=== PATIENT | female | born 1935 | race Asian ===

== ENCOUNTER 2018-02-27 09:14 | Inpatient (IN) | payer OTHER ==
[2018-02-27] MEDS ORDERED: fentaNYL (PF) 50 MCG/ML 2 ML AMP IV STA ×2 (10:13→11:40)
--- NOTE | 2018-02-27 10:19 | ED ---
Fall HPI - General Chief Complaint: Fall Stated Complaint: fall Time Seen by Provider: 02/27/18 10:00 Source: patient, family, science interpreter, RN notes reviewed Mode of arrival: wheelchair - History of Present Illness Initial Comments: This 82-year-old female history of compression fractures and other medical issues who uses a walker to walk at home and fell today. Walker apparently went over toward the left she fell landing on her left hip and now complains left hip pain. She had weak. Into a car to get here today. No complete to head neck or other back injury she points her left hip and anterior left groin. She did not pass out denies any palpitations or chest pain. She has difficulty moving her left lower extremity MD Complaint: fall - Related Data Home Medications Medication Instructions Recorded Confirmed Allopurinol [Zyloprim] 100 mg PO DAILY 02/27/18 02/27/18 Cyclobenzaprine [Flexeril] 5 mg PO TID PRN 02/27/18 02/27/18 Ergocalciferol (Vitamin D2) 50,000 unit PO Q7D 02/27/18 02/27/18 [Vitamin D2] Fenofibrate [Lofibra] 160 mg PO DAILY 02/27/18 02/27/18 Fluticasone Nasal [place] [Flonase 2 spr EA NOSTRIL DAILY 02/27/18 02/27/18 Nasal [place]] Isosorbide Mononitrate ER [Imdur] 60 mg PO DAILY 02/27/18 02/27/18 Levothyroxine Sodium [Synthroid] 50 mcg PO DAILY 02/27/18 02/27/18 Losartan [Cozaar] 50 mg PO DAILY 02/27/18 02/27/18 Nitroglycerin Sl Tabs [Nitrostat] 0.4 mg SUBLINGUAL Q5M PRN 02/27/18 02/27/18 Simvastatin [Zocor] 20 mg PO HS 02/27/18 02/27/18 amLODIPine [Norvasc] 10 mg PO DAILY 02/27/18 02/27/18 Allergies Allergy/AdvReac Type Severity Reaction Status Date / Time No Known Allergies Allergy Verified 02/27/18 09:29 Review of Systems ROS Statement: Those systems with pertinent positive or pertinent negative responses have been documented in the HPI. ROS Other: All systems not noted in ROS Statement are negative. Past Medical History Past Medical History: Coronary Artery Disease (CAD), Hypertension, Renal Disease History of Any Multi-Drug Resistant Organisms: None Reported Past Surgical History: Cholecystectomy, Hysterectomy Past Psychological History: No Psychological Hx Reported Smoking Status: Never smoker Past Alcohol Use History: None Reported Past Drug Use History: None Reported General Exam - General Exam Comments Initial Comments: This is a well-developed well-nourished awake alert female the information is gathered through her daughter who interprets for her. Limitations: no limitations General appearance: alert, anxious Head exam: Present: atraumatic, normocephalic, normal inspection Eye exam: Present: normal appearance, PERRL, EOMI. Absent: scleral icterus, conjunctival injection, periorbital swelling ENT exam: Present: normal exam, mucous membranes moist Neck exam: Present: normal inspection. Absent: tenderness, meningismus, lymphadenopathy Respiratory exam: Present: normal lung sounds bilaterally. Absent: respiratory distress, wheezes, rales, rhonchi, stridor Cardiovascular Exam: Present: regular rate, normal rhythm, normal heart sounds. Absent: systolic murmur, diastolic murmur, rubs, gallop, clicks GI/Abdominal exam: Present: soft, normal bowel sounds. Absent: distended, tenderness, guarding, rebound, rigid Extremities exam: Present: tenderness, normal capillary refill, other ( Tenderness palpation over left hip no definite step-off or deformity however. There is tenderness over the left groin area over the pubis. Abrasion seen over the left knee with no tenderness palpation of the distal femur and knee and tib-fib or foot the other extremities are unremarkable except for an abrasion to the left elbow.). Absent: full ROM, pedal edema, joint swelling, calf tenderness Back exam: Present: normal inspection Neurological exam: Present: alert, oriented X3, CN II-XII intact Psychiatric exam: Present: normal affect, normal mood Skin exam: Present: warm, dry, normal color. Absent: intact, rash Course Vital Signs 02/27/18 09:24 Temperature 98.7 F Pulse Rate 74 Respiratory 18 Rate Blood Pressure 128/82 O2 Sat by Pulse 95 Oximetry Medical Decision Making - Medical Decision Making I did discuss the findings with patient and her daughter who did interpret the Mandarin Azeri language. Patient does not speak any Yakut. Patient will be admitted to orthopedics with medical clearance for surgery. - Lab Data Result diagrams: 02/27/18 10:06 02/27/18 10:06 Lab Results 02/27/18 02/27/18 Range/Units 10:06 10:06 WBC 6.2 (3.8-10.6) k/uL RBC 4.28 (3.80-5.40) m/uL Hgb 12.6 (11.4-16.0) gm/dL Hct 39.3 (34.0-46.0) % MCV 91.8 (80.0-100.0) fL MCH 29.6 (25.0-35.0) pg MCHC 32.2 (31.0-37.0) g/dL RDW 14.7 (11.5-15.5) % Plt Count 243 (150-450) k/uL Neutrophils % 75 % Lymphocytes % 17 % Monocytes % 4 % Eosinophils % 3 % Basophils % 0 % Neutrophils # 4.7 (1.3-7.7) k/uL Lymphocytes # 1.0 (1.0-4.8) k/uL Monocytes # 0.3 (0-1.0) k/uL Eosinophils # 0.2 (0-0.7) k/uL Basophils # 0.0 (0-0.2) k/uL Sodium 143 (137-145) mmol/L Potassium 4.3 (3.5-5.1) mmol/L Chloride 105 (98-107) mmol/L Carbon Dioxide 26 (22-30) mmol/L Anion Gap 12 mmol/L BUN 49 H (7-17) mg/dL Creatinine 1.92 H (0.52-1.04) mg/dL Est GFR (CKD-EPI)AfAm 28 (>60 ml/min/1.73 sqM) Est GFR (CKD-EPI)NonAf 24 (>60 ml/min/1.73 sqM) Glucose 89 (74-99) mg/dL Calcium 11.0 H (8.4-10.2) mg/dL Magnesium 2.1 (1.6-2.3) mg/dL Total Bilirubin 0.5 (0.2-1.3) mg/dL AST 29 (14-36) U/L ALT 33 (9-52) U/L Alkaline Phosphatase 30 L (38-126) U/L Total Protein 6.9 (6.3-8.2) g/dL Albumin 4.3 (3.5-5.0) g/dL - EKG Data -: EKG Interpreted by Me EKG shows normal: sinus rhythm (Sinus rhythm rate of 67 appear of 01 84 QRS 94 QT since QTC 420/432 nonspecific T-wave configuration.) - Radiology Data Radiology results: report reviewed (I did review the imaging and report or is a left hip femoral neck fracture.), image reviewed Disposition Clinical Impression: Fall, Closed left hip fracture, Renal insufficiency, Chronic low back pain Disposition: ADMITTED IP TO THIS [facility] Condition: Stable Referrals: Maryam Marcus MD [Primary Care Provider] - 1-2 days
--- NOTE | 2018-02-27 10:59 | XR ---
EXAMINATION TYPE: XR Hip LT and AP Pelvis DATE OF EXAM: 02/27/2018 COMPARISON: NONE HISTORY: Trauma and pain TECHNIQUE: A single AP view of the pelvis is obtained. Two views of the left hip are obtained. FINDINGS: There is left femoral neck fracture with impaction. No dislocation. Bone mineralization is reduced. Vascular calcifications present within the pelvis. Degenerative disc changes in the visuali zed lumbar spine. IMPRESSION: Left femoral neck fracture
[2018-02-27 11:21] LABS: Albumin 4.3 g/dL (3.5-5.0); Magnesium 2.1 mg/dL (1.6-2.3); Potassium 4.3 mmol/L (3.5-5.1); Total Bilirubin 0.5 mg/dL (0.2-1.3); Total Protein 6.9 g/dL (6.3-8.2)
[2018-02-27 11:22] LABS: Basophils % (A) 0 %; Eosinophils # (A) 0.2 k/uL (0-0.7); Eosinophils % (A) 3 %; HCT 39.3 % (34.0-46.0); HGB 12.6 gm/dL (11.4-16.0); Lymphocytes % (A) 17 %; MCH 29.6 pg (25.0-35.0); MCHC 32.2 g/dL (31.0-37.0); MCV 91.8 fL (80.0-100.0); Mean Platelet Volume 7.4; Monocytes # (A) 0.3 k/uL (0-1.0); Monocytes % (A) 4 %; Neutrophils # (A) 4.7 k/uL (1.3-7.7); Neutrophils % (A) 75 %; Platelet Count 243 k/uL (150-450); RBC 4.28 m/uL (3.80-5.40); RDW 14.7 % (11.5-15.5); WBC 6.2 k/uL (3.8-10.6)
[2018-02-27] MEDS ORDERED: NALOXONE 0.4 MG/ML 1 ML VIAL IV PRN (11:48)
[2018-02-27] MEDS ORDERED: NITROGLYCERIN SL TABS 0.4 MG TAB SUBLINGUAL PRN (11:50)
[2018-02-27] MEDS ORDERED: CYCLOBENZAPRINE 5 MG TAB PO PRN (11:50)
[2018-02-27] MEDS ORDERED: SODIUM CHLORIDE 0.9% 1,000 ML IV SCH (12:00)
--- NOTE | 2018-02-27 12:33 | XR ---
EXAMINATION TYPE: XR chest 1V portable DATE OF EXAM: 02/27/2018 COMPARISON: NONE HISTORY: Fall, left hip fracture TECHNIQUE: Single frontal view of the chest is obtained. FINDINGS: Patient is rotated. The heart is enlarged. Aorta appears somewhat ectatic may be calcified , pulmonary artery appears prominently. There is no evident pneumothorax or pleural effusion. Lung vo lumes are low. Apical pleural thickening is noted. IMPRESSION: Cardiomegaly. There may be aortic ectasia, correlate for possible pulmonary hypertension . Expiratory rotated exam, follow-up as indicated.
[2018-02-27 13:12] VITALS: BMI 26.4
[2018-02-27] MEDS: HYDROmorphone 0.5 MG/0.5 ML SYRINGE IVP PRN (15:41)
--- NOTE | 2018-02-27 17:36 | P.HPOR ---
History of Present Illness H&P Date: 02/27/18 Chief Complaint: Left hip pain This is an 82-year-old female who fell while using her walker today. She is complaining of left hip pain on arrival to the emergency department. On exam and x-ray in the emergency department she is found to have a femoral neck fracture of the left hip. The patient does not speak Malay. Her daughter interprets for her. Her primary language is Mandarin Egyptian. The patient is admitted to our service for surgical intervention and care. Past Medical History Past Medical History: Coronary Artery Disease (CAD), Hypertension, Renal Disease Additional Past Medical History / Comment(s): high uric acid, kidney disease level 4, hypothyroidism, pre-diabetic History of Any Multi-Drug Resistant Organisms: None Reported Past Surgical History: Cholecystectomy, Hysterectomy Past Anesthesia/Blood Transfusion Reactions: No Reported Reaction Past Psychological History: No Psychological Hx Reported Smoking Status: Never smoker Past Alcohol Use History: None Reported Past Drug Use History: None Reported - Past Family History Father Family Medical History: Cancer Sister(s) Family Medical History: Cancer, Hypertension Medications and Allergies Home Medications Medication Instructions Recorded Confirmed Type Allopurinol [Zyloprim] 100 mg PO DAILY 02/27/18 02/27/18 History Cyclobenzaprine [Flexeril] 5 mg PO TID PRN 02/27/18 02/27/18 History Ergocalciferol (Vitamin D2) 50,000 unit PO Q7D 02/27/18 02/27/18 History [Vitamin D2] Fenofibrate [Lofibra] 160 mg PO DAILY 02/27/18 02/27/18 History Fluticasone Nasal [place] [Flonase 2 spr EA NOSTRIL DAILY 02/27/18 02/27/18 History Nasal [place]] Isosorbide Mononitrate ER [Imdur] 60 mg PO DAILY 02/27/18 02/27/18 History Levothyroxine Sodium [Synthroid] 50 mcg PO DAILY 02/27/18 02/27/18 History Losartan [Cozaar] 50 mg PO DAILY 02/27/18 02/27/18 History Nitroglycerin Sl Tabs [Nitrostat] 0.4 mg SUBLINGUAL Q5M PRN 02/27/18 02/27/18 History Simvastatin [Zocor] 20 mg PO HS 02/27/18 02/27/18 History amLODIPine [Norvasc] 10 mg PO DAILY 02/27/18 02/27/18 History Allergies Allergy/AdvReac Type Severity Reaction Status Date / Time No Known Allergies Allergy Verified 02/27/18 09:29 Physical Examination This is a pleasant 82-year-old female in no acute distress. The daughter arrived during the exam. Exam of the head neck reveal no obvious deformity. Exam of the upper extremities reveals no deformity. She is able to move her upper extremities without difficulty or pain. Exam of the lower extremities reveals no obvious deformity. She points to the left groin as the source of pain. There is mild pain with logroll of the left hip. She has full foot and ankle motion. Pedal pulses +2/4. Neurovascular status to the lower extremities is intact. Results X-rays of the pelvis and left hip reveal a femoral neck fracture with slight angulation. - Labs Labs: Abnormal Lab Results - Last 24 Hours (Table) 02/27/18 Range/Units 10:06 BUN 49 H (7-17) mg/dL Creatinine 1.92 H (0.52-1.04) mg/dL Calcium 11.0 H (8.4-10.2) mg/dL Alkaline Phosphatase 30 L (38-126) U/L H & H 02/27/18 Range/Units 10:06 Hgb 12.6 (11.4-16.0) gm/dL Hct 39.3 (34.0-46.0) % Result Diagrams: 02/27/18 10:06 02/27/18 10:06 Assessment and Plan (1) Closed left hip fracture Current Visit: Yes Status: Acute Code(s): S72.002A - FRACTURE OF UNSP PART OF NECK OF LEFT FEMUR, INIT SNOMED Code(s): 607297641 (2) Fall Current Visit: Yes Status: Acute Code(s): W19.XXXA - UNSPECIFIED FALL, INITIAL ENCOUNTER SNOMED Code(s): 1809955 Plan: The clinical and x-ray findings are discussed with the patient and her daughter. It is recommended she undergo hemiarthroplasty of the left hip. The procedures discussed in detail including the possible risks and outcomes of surgery. She'll most likely require inpatient rehab postoperatively. After discussion and consideration the patient and her family elects proceed with hemiarthroplasty left hip.
--- NOTE | 2018-02-27 19:14 | XR ---
EXAMINATION TYPE: XR lumbar spine 2 or 3V DATE OF EXAM: 02/27/2018 COMPARISON: NONE HISTORY: Back pain TECHNIQUE: 3 views FINDINGS: There is mild lumbar dextroscoliosis. There is 40% anterior wedging of L3 vertebra. There i s narrowing of disc spaces and extensive spur formation. Posterior elements are intact. Sacroiliac yesica ints are intact. IMPRESSION: Multilevel spondylosis. Old L3 compression fracture. No acute fracture seen. Dextroscolio sis.
[2018-02-27] MEDS: ATORVASTATIN 10 MG TAB PO SCH (21:18)
[2018-02-27] MEDS: HEPARIN SODIUM,PORCINE 5,000 UNIT/ML 1 ML VIAL SQ SCH (21:18)
[2018-02-28] MEDS: HYDROmorphone 0.5 MG/0.5 ML SYRINGE IVP PRN ×2 (04:22→12:16)
[2018-02-28] MEDS: LEVOTHYROXINE 50 MCG TAB PO SCH (05:34)
--- NOTE | 2018-02-28 06:30 | CONS ---
CONSULTATION DATE OF CONSULTATION: 02/27/2018 REASON FOR CONSULTATION: Medical management requested by Dr. Richards. CONSULTATION: This is a very pleasant 82-year-old patient, Mandarin speaking Cuban lady follows with Dr. Maryam Marcus. No family is available. History is obtained, some through the patient, some through the nursing and some through the ER notes. Chronic stable medical conditions include coronary artery disease, hypertension, chronic kidney disease, hypothyroid, hyperlipidemia. Patient does use a walker. The patient took a fall, suffering a fracture of the left hip. The patient has got pain at present. Otherwise, there was no chest pain or palpitation. The patient's appetite is normally fair. Patient due to go down for surgery tomorrow. The patient denies any chest pain or shortness of breath. REVIEW OF SYSTEMS: Difficult to obtain because of limited historian but: CONSTITUTIONAL: Tired. HEENT: Decreased hearing. RESPIRATORY: None. CARDIOVASCULAR: None. GASTROINTESTINAL: None. GENITOURINARY: None. MUSCULOSKELETAL: Arthritic pain in different joints. DERMATOLOGICAL: None. HEMATOLOGICAL: None. LYMPHATIC: None. PSYCHIATRY: None. NEUROLOGICAL: None. PAST MEDICAL HISTORY: Coronary artery disease, hypertension, chronic kidney disease, hyperuricemia, hypothyroidism. PAST SURGICAL HISTORY: Cholecystectomy, hysterectomy. SOCIAL HISTORY: Does not smoke or drink alcohol. Apparently lives with the family. FAMILY HISTORY: Family history of cancer, type unknown. HOME MEDICATIONS: 1. Vitamin D2; 50,000 units every 7 days. 2. Zocor 20 mg q.h.s. 3. Nitrostat 0.4 sublingual q.5 p.r.n. 4. Cozaar 50 mg a day. 5. Synthroid 50 mcg a day. 6. Norvasc 10 mg a day. 7. Imdur ER 60 mg a day. 8. Flonase spray. 9. Lofibra 160 mg a day. 10.Flexeril 5 mg t.i.d. p.r.n. 11.Allopurinol 100 mg p.o. daily. ALLERGIES: None. PHYSICAL EXAMINATION: On examination, temperature 97.1, pulse 64, respirations 14, blood pressure 129/65, pulse ox 95% on 2 L. GENERAL APPEARANCE: Average build, lying in bed, awake, a bit tired-appearing. EYES: Pupils equal. Conjunctivae normal. HENT: External appearance of nose and ears normal. Oral cavity normal. NECK; JVD not raised. Mass not palpable. RESPIRATORY: Effort normal. Lungs are clear. CARDIOVASCULAR: First and second sounds normal. No edema. ABDOMEN: Soft, nontender. Liver and spleen not palpable. LYMPHATIC: No lymph node palpable. PSYCHIATRY: Awake, able to answer questions, though in broken [place]. NEUROLOGICAL: Pupils equal. No facial asymmetry. Power and sensation grossly intact. MUSCULOSKELETAL: Limited range of motion left femoral neck. INVESTIGATIONS: White count 6.2, hemoglobin 12.6, BUN 49, creatinine 1.92. Hip x-ray showing fracture of the left femoral neck. EKG shows nonspecific findings. Lumbar spine x-ray multiple level spondylosis, old L3 compression fracture. ASSESSMENT: 1. Acute femoral neck fracture secondary to fall. 2. Multiple level lumbar degenerative joint disease. 3. Chronic L3 compression fracture. 4. Chronic gait dysfunction. Patient at baseline uses a walker. 5. Coronary artery disease in a patient who has got limited exercise tolerance, but has no active cardiac symptoms. No chest pain or shortness of breath. 6. Essential hypertension. 7. 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 8. Hypothyroidism. 9. Hyperlipidemia. PLAN: The patient is a bit of a moderate risk for surgery given her known history of coronary artery disease and limited exercise tolerance, but patient has no active symptoms and no absolute contraindication and may proceed with surgery. Home medications are to be continued. Will hydrate the patient. Do a renal ultrasound. It appears as per history patient renal function is chronic. Care was discussed with the patient. The patient understands that she is going to proceed for surgery. No family member is currently present. Thank you, Dr. Richards. MMROHANL / RAMONAN: [id number] /
[2018-02-28 06:53] LABS: Calcium 9.9 mg/dL (8.4-10.2)
[2018-02-28 08:05] LABS: INR 1.1 (<1.2); Partial Thromboplastin Time 22.8 sec (22.0-30.0); Prothrombin Time 10.7 sec (9.0-12.0)
[2018-02-28] MEDS: HEPARIN SODIUM,PORCINE 5,000 UNIT/ML 1 ML VIAL SQ SCH ×2 (08:55→20:39)
[2018-02-28] MEDS: ALLOPURINOL 100 MG TAB PO SCH (09:06)
[2018-02-28] MEDS: FENOFIBRATE 160 MG TAB PO SCH (09:06)
[2018-02-28] MEDS: FLUTICASONE 50MCG/SPRAY NASAL 16GM EA NOSTRIL SCH (10:37)
[2018-02-28] MEDS: ISOSORBIDE MONONITRATE ER 60 MG TAB.ER.24H PO SCH (10:37)
[2018-02-28] MEDS: LOSARTAN 50 MG TAB PO SCH (10:37)
[2018-02-28] MEDS: amLODIPine 10 MG TAB PO SCH (10:37)
[2018-02-28] MEDS: LACTATED RINGERS 1,000 ML IV SCH ×4 (10:37→15:17)
--- NOTE | 2018-02-28 11:19 | US ---
EXAMINATION TYPE: US kidneys/renal and bladder DATE OF EXAM: 02/28/2018 COMPARISON: NONE CLINICAL HISTORY: renal u/s-renal failure. EXAM MEASUREMENTS: Right Kidney: 8.7 x 4.9 x 4.4 cm Left Kidney: 9.2 x 4.1 x 4.3 cm Left kidney imaged first due to patient's position and broken hip. Kidneys are echogenic and difficult to visualize from surrounding tissue. Right Kidney: upper pole hypoechoic structure measures 1.2 x 1.3 x 1.4 cm, probable cyst. Left Kidney: echogenic, at least 2 cysts seen, 2.8 x 2.9 x 3.4 cm and 3.4 x 2.0 x 2.8 cm. Bladder: pt has catheter, therefore, the bladder is decompressed. Bilateral Jets seen: No IMPRESSION: Bilateral hypoechoic nodules most suggestive of bilateral cysts. Renal cortex is echogenic with reduc ed corticomedullary differentiation suggestive of chronic medical renal disease.
[2018-02-28] MEDS ORDERED: LIDOCAINE 1% 20 ML VIAL (10MG/ML) FOR IV START INTRADERMA ONE (12:55)
[2018-02-28] MEDS ORDERED: MIDAZOLAM 2 MG/2 ML VIAL IVP ONE (14:40)
[2018-02-28] MEDS ORDERED: diphenhydrAMINE 50 MG/ML 1 ML VIAL ONE (15:17)
[2018-02-28] MEDS ORDERED: KETAMINE 10 MG/ML 20 ML VIAL ONE (15:17)
[2018-02-28] MEDS ORDERED: PROPOFOL 10 MG/ML 20 ML VIAL IV ONE (15:17)
[2018-02-28] MEDS ORDERED: ePHEDrine SULFATE/0.9% NACL/PF 50 MG/5 ML SYRINGE IV ONE (15:17)
[2018-02-28] MEDS ORDERED: SODIUM CHLORIDE 0.9% 50 ML with ceFAZolin 2,000 MG IV ONE ×2 (15:40)
[2018-02-28] MEDS ORDERED: ceFAZolin 1,000 MG in SODIUM CHLORIDE 0.9% 1,000 ML IRRIGATION ONE (16:00)
[2018-02-28] MEDS ORDERED: LACTATED RINGERS 1,000 ML IV ONE (16:44)
[2018-02-28] MEDS ORDERED: ACETAMINOPHEN TAB 325 MG TAB PO PRN (16:59)
[2018-02-28] MEDS ORDERED: HYDROmorphone 0.5 MG/0.5 ML SYRINGE IVP PRN ×3 (16:59)
[2018-02-28] MEDS ORDERED: MAGNESIUM HYDROXIDE 2,400 MG/10 ML CUP PO PRN (16:59)
[2018-02-28] MEDS ORDERED: TEMAZEPAM 15 MG CAP PO PRN (16:59)
[2018-02-28] MEDS ORDERED: DIAZEPAM 5 MG TAB PO PRN (16:59)
[2018-02-28] MEDS ORDERED: hydrOXYzine PAMOATE 25 MG CAP PO PRN (16:59)
[2018-02-28] MEDS ORDERED: HYDROcodone/APAP 5-325MG 1 EACH TAB PO PRN (16:59)
--- NOTE | 2018-02-28 17:46 | P.OP ---
Date of Procedure: 02/28/18 Preoperative Diagnosis: 1. Displaced left subcapital femoral neck fracture 2. History of coronary artery disease 3. History of chronic renal insufficiency 4. History of prior fragility fracture Postoperative Diagnosis: Same Procedure(s) Performed: Cemented left hip hemiarthroplasty Implants: Jose C LDFX Anesthesia: spinal Surgeon: Gilberto Richards Swedger #1: Kenneth Blount Estimated Blood Loss (ml): 100 IV fluids (ml): 950 Pathology: other (Femoral head sent to pathology) Condition: stable Disposition: PACU Indications for Procedure: The patient is an 82-year-old female with multiple medical problems including coronary artery disease and chronic renal insufficiency who sustained a low- energy fall resulting in a displaced left femoral neck fracture. She was seen in the emergency department and admitted to orthopedics. She was seen preoperatively by internal medicine and cleared for surgery. I met with the patient's daughter and discussed treatment options as the patient only speaks Mandarin. Our recommendation was to perform a cemented hemiarthroplasty of the hip. The patient's daughter understands the potential risks and complications of surgery including but not limited to risk of anesthesia, risk of superficial infection, risk of deep infection, risk of delayed wound healing, risk of intraoperative fracture, risk of postoperative fracture, risk of dislocation, risk of leg length inequality, risk of chronic pain, risk of chronic swelling, inability to ambulate, DVT, PE, need for further surgery, and possibly loss of life. They provided their verbal consent to go forward with surgery. A written consent form was also obtained. The patient's daughter understands the potential for complications given her mother's age and multiple medical comorbidities. All the family's questions were answered prior to surgery. Description of Procedure: The patient was then prepped with holding and the correct left leg was marked with my initials. I reviewed the consent form with the patient's daughters and all of their questions were answered. The patient was then brought back to the operating room. She was given a spinal anesthetic by anesthesia. She was then placed into the lateral decubitus position with the right side down and the left side up. She was secured to the OR table with a Montral frame. An axillary roll was placed. A pillow was placed between the legs. The left leg was then prepped and draped in the standard sterile fashion. Prior to starting surgery timeout was performed identifying the correct patient, operative extremity, and procedure. I began by outlining an incision over the posterior lateral aspect of the hip. A 10 cm longitudinal incision was made over the posterior border of the femur and was then angled posteriorly 45 at the tip of the greater trochanter. Skin incision was made with a scalpel and dissection was carried down carefully through subcutaneous tissue with electrocautery. The IT band was identified and split longitudinally in line with the skin incision. A Charnley retractor was placed. The trochanteric bursa was then elevated using electrocautery. The piriformis was identified and a medium Newell elevator was placed between the piriformis and posterior hip capsule. The piriformis and short external rotators were taken off the posterior femur with electrocautery. June retractors were placed and the posterior capsule was teed. There was a large hemarthrosis encountered. Posterior leaflets of the capsule were raised and then tagged for later repair. A subcapital femoral neck fracture was immediately evident. A saw was used to make a neck cut 1 thumb breath above the lesser trochanter. The head was then removed and sized. The proximal femur was then exposed and retractors were placed. A box osteotome was then used to gain entrance into the proximal canal taking care to antevert and lateralize. A canal finder was then used to gain entry into the proximal canal. I sequentially reamed to a size 11 reamer. I then sequentially broached in 1 mm increments starting with a 9 mm broach up to an 11 mm broach which felt stable. A calcar planar was used to bring the cut surface of the femoral neck flush with the level of the broach. I then trialed with a standard offset neck length which felt unstable. I then trialed with a +7 neck which felt stable. The hip was gently dislocated with a bone hook and the broach was removed. A moist Ray-Kendall sponge was placed in the acetabulum. The proximal femur was irrigated and prepared for cement. A cement restrictor was placed. Anesthesia was notified prior to pressurizing cement. Cement was then pressurized into the proximal femur. A size 11 cemented stem was then dispensed and gently tapped into place taking care to appropriately antevert the stem while the cement hardened. The cement was tapped down until its collar rested on the calcar. Once the cement had hardened all excess cement and the moist Ray-Kendall were removed. I once again trialed with a +7 neck and 43 mm head which felt stable. The hip was once again gently dislocated. The Smith taper was cleansed and a final head component was tapped into place. The hip was once again gently reduced and felt stable in all planes of motion. The hip was copiously irrigated with pulsatile lavage. The posterior capsule was reapproximated using 0 Vicryl. The piriformis was reapproximated through bone tunnels on the greater trochanter using #2 Ethibond and a modified Steven-Khurram stitch. The hip was once again irrigated. The IT band was closed with a running stitch. The deep subcu was reapproximated using 2-0 Vicryl. The skin was closed with a running subcuticular Quill stitch and the skin margins were sealed with Dermabond. A dressing was applied. The drapes were taken down and a hip abduction pillow was placed. I verified with the medical imaging technologist that all instrument, sponge, and sharp counts were correct. The patient was then transferred from the OR table onto a gurney and brought to PACU having tolerated the procedure well. Kenneth Blount PA-C was required is a skilled patient clerical assistant for patient positioning, surgical exposure, placement of implants, reduction of hip, closure of wound, and transfer of the patient. Plan: The patient can weight-bear as tolerated on her left hip. She is to follow posterior hip precautions with a hip abduction pillow for 6 weeks. She' ll be treated with Lovenox for DVT prophylaxis. She will need 2 doses of postoperative antibiotics. Internal medicine for postoperative medical management and social work for discharge planning.
--- NOTE | 2018-02-28 17:47 | XR ---
EXAMINATION TYPE: XR Hip Limited LT DATE OF EXAM: 02/28/2018 COMPARISON: Yesterday HISTORY: Postop TECHNIQUE: Single view. FINDINGS: There is a new left hip prosthesis. Components appear in anatomic position. IMPRESSION: No complicating process seen.
[2018-02-28] MEDS: HYDROcodone/APAP 5-325MG 1 EACH TAB PO PRN (20:35)
[2018-02-28] MEDS: ATORVASTATIN 10 MG TAB PO SCH (20:35)
[2018-02-28] MEDS: SENNOSIDES-DOCUSATE SODIUM 1 EACH TAB PO SCH (20:36)
--- NOTE | 2018-03-01 00:03 | PN ---
PROGRESS NOTE DATE OF SERVICE: 02/28/2018. PRESENTING COMPLAINT: Fall. INTERVAL HISTORY: This pleasant 82-year-old presents status post femoral neck fracture secondary to fall. I saw the patient in the morning. Daughter is at the bedside, awaiting surgery. Some pain is present. Otherwise comfortable. REVIEW OF SYSTEMS: Done for constitutional, cardiovascular, GI, pulmonary; relevant findings as above. CURRENT MEDICATIONS: Reviewed. PHYSICAL EXAMINATION: Temperature 98.7, pulse 58, respiration 16, blood pressure 121/64, pulse ox 97% on room air. GENERAL APPEARANCE: Lying in bed comfortable, awake. EYES: Pupils equal. Conjunctivae normal. HEENT: External ears and nose normal. Oral cavity normal neck. JVD not raised. Mass not palpable. Respiratory effort normal. LUNGS: Clear. CARDIOVASCULAR: 1st and 2nd sounds. No edema. ABDOMEN: Soft, nontender. Liver and spleen not palpable. PSYCHIATRY: Awake, answering questions. INVESTIGATIONS: BUN 40, creatinine 1.77. ASSESSMENT: 1. Acute femoral neck fracture secondary to fall, of the left femur, pending surgery. 2. Multilevel lumbar DJD. 3. Chronic L3 compression fracture. 4. Chronic gait dysfunction. Patient at baseline uses a walker. 5. Coronary artery disease in a patient with limited exercise tolerance with no active symptoms. 6. Essential hypertension. 7. 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 8. Hypothyroidism. 9. Hyperlipidemia. PLAN: Care was discussed with daughter at the bedside. Awaiting surgery this morning. Will follow. MMODL / IJN: [id number] /
[2018-03-01] MEDS: ceFAZolin IN SWFI 2 GM/20 ML SYRINGE IVP SCH ×2 (00:14→08:15)
[2018-03-01] MEDS: HYDROcodone/APAP 5-325MG 1 EACH TAB PO PRN ×3 (03:22→23:49)
[2018-03-01] MEDS: LACTATED RINGERS 1,000 ML IV SCH ×2 (05:27→14:30)
[2018-03-01] MEDS: LEVOTHYROXINE 50 MCG TAB PO SCH (05:52)
[2018-03-01 06:53] LABS: Basophils % (A) 1 %; Eosinophils # (A) 0.1 k/uL (0-0.7); Eosinophils % (A) 2 %; HCT 31.6 % (34.0-46.0); HGB 10.1 gm/dL (11.4-16.0); Lymphocytes % (A) 19 %; MCH 29.7 pg (25.0-35.0); MCHC 32.1 g/dL (31.0-37.0); MCV 92.7 fL (80.0-100.0); Mean Platelet Volume 7.5; Monocytes # (A) 0.3 k/uL (0-1.0); Monocytes % (A) 6 %; Neutrophils # (A) 3.6 k/uL (1.3-7.7); Neutrophils % (A) 72 %; Platelet Count 202 k/uL (150-450); RBC 3.41 m/uL (3.80-5.40); RDW 14.7 % (11.5-15.5)
[2018-03-01 07:00] LABS: INR 1.1 (<1.2); Prothrombin Time 10.8 sec (9.0-12.0)
[2018-03-01 07:04] LABS: Calcium 9.3 mg/dL (8.4-10.2); Potassium 4.4 mmol/L (3.5-5.1)
[2018-03-01] MEDS: amLODIPine 10 MG TAB PO SCH (08:14)
[2018-03-01] MEDS: FENOFIBRATE 160 MG TAB PO SCH (08:14)
[2018-03-01] MEDS: ALLOPURINOL 100 MG TAB PO SCH (08:14)
[2018-03-01] MEDS: MULTIVITAMINS, THERA 1 EACH TAB PO SCH (08:15)
[2018-03-01] MEDS: LOSARTAN 50 MG TAB PO SCH (08:15)
[2018-03-01] MEDS: ISOSORBIDE MONONITRATE ER 60 MG TAB.ER.24H PO SCH (08:15)
--- NOTE | 2018-03-01 10:05 | P.PN ---
Subjective Progress Note Date: 03/01/18 Principal diagnosis: Left hip fracture. This is an 82-year-old female who is status post hemiarthroplasty of the left hip. She is postop day #1. Family is not present at this time. There is a language barrier. However, the patient is able to give me a thumbs-up stating that she is feeling okay today. Objective - Vital Signs Vital signs: Vital Signs Temp 98.7 F 03/01/18 07:45 Pulse 69 03/01/18 07:45 Resp 14 03/01/18 07:45 BP 119/70 03/01/18 07:45 Pulse Ox 98 03/01/18 07:45 Intake & Output 02/28/18 03/01/18 03/01/18 18:59 06:59 18:59 Intake Total 2001 400 Output Total 900 500 Balance 1101 -100 Intake: IV 1301 Intake, IV Titration 700 400 Amount Lactated Ringers 1,000 ml 700 400 @ 100 mls/hr IV .Q10H ESTHELA Rx#:[id number] Output: Urine 800 500 Estimated Blood Loss 100 Other: Voiding Method Indwelling Catheter Indwelling Catheter Indwelling Catheter - Exam This is a pleasant 82-year-old female in no acute distress. She is alert and oriented 3. Exam of the lower extremities reveals that her dressing to her left hip is clean, dry and intact. She has full foot and ankle motion without difficulty or pain. Neurovascular status to the lower extremities intact. - Labs CBC & Chem 7: 03/01/18 06:21 03/01/18 06:21 Labs: Abnormal Lab Results - Last 24 Hours (Table) 03/01/18 03/01/18 Range/Units 06:21 06:21 RBC 3.41 L (3.80-5.40) m/uL Hgb 10.1 L (11.4-16.0) gm/dL Hct 31.6 L (34.0-46.0) % BUN 33 H (7-17) mg/dL Creatinine 1.60 H (0.52-1.04) mg/dL Glucose 104 H (74-99) mg/dL Assessment and Plan (1) Closed left hip fracture Current Visit: Yes Status: Acute Code(s): S72.002A - FRACTURE OF UNSP PART OF NECK OF LEFT FEMUR, INIT SNOMED Code(s): 207018880 (2) Fall Current Visit: Yes Status: Acute Code(s): W19.XXXA - UNSPECIFIED FALL, INITIAL ENCOUNTER SNOMED Code(s): 5788023 Plan: The clinical findings are discussed with the nursing staff. We will continue to follow. She is to begin physical therapy today. We're planning discharge to inpatient rehab Saturday.
[2018-03-01] MEDS: ENOXAPARIN 30 MG/0.3 ML SYRINGE SQ SCH (11:35)
[2018-03-01] MEDS: FLUTICASONE 50MCG/SPRAY NASAL 16GM EA NOSTRIL SCH (11:35)
[2018-03-01] MEDS: HYDROmorphone 0.5 MG/0.5 ML SYRINGE IVP PRN (13:44)
[2018-03-01] MEDS: SENNOSIDES-DOCUSATE SODIUM 1 EACH TAB PO SCH (21:13)
[2018-03-01] MEDS: ATORVASTATIN 10 MG TAB PO SCH (21:13)
--- NOTE | 2018-03-02 04:16 | PN ---
PROGRESS NOTE DATE OF SERVICE: March 01, 2018. PRESENTING COMPLAINT: Fall. INTERVAL HISTORY: Patient is admitted with left femoral neck fracture, status post surgery. Some pain is present. The patient requested to eat soup. Breathing is stable. Lying in bed. REVIEW OF SYSTEMS: Done for constitutional, cardiovascular, GI, pulmonary, musculoskeletal, relevant findings as above. MEDICATIONS: Current medications are reviewed. PHYSICAL EXAMINATION: VITAL SIGNS: Temperature 98.6, pulse 74, respiratory 15, blood pressure 104/61, pulse ox 93% on room air. GENERAL APPEARANCE: Lying in bed, awake, comfortable. EYES: Pupils equal. Conjunctivae normal. HEENT: External appearance of nose and ears normal. Oral cavity normal. NECK: JVD not raised. Mass not palpable. RESPIRATORY: Effort normal. LUNGS are clear. CARDIOVASCULAR: 1st and 2nd sounds normal. No edema. ABDOMEN: Soft, nontender. Liver and spleen not palpable. PSYCHIATRY: Awake, answering questions. INVESTIGATIONS: White count 5, hemoglobin 10.1, BUN 33, creatinine 1.60. Ultrasound of bladder and abdomen showing bilateral nodules and reduced cortical medullary differentiation. ASSESSMENT: 1. Acute femoral neck fracture secondary to fall followed by surgical intervention. 2. Multi level lumbar degenerative joint disease. 3. Chronic L3 compression fracture. 4. Chronic gait dysfunction. Patient at a baseline was using a walker. 5. Coronary artery disease. The patient has limited exercise tolerance. No active symptoms. 6. Essential hypertension. 7. Chronic kidney disease stage 3 probably from hypertensive nephrosclerosis. 8. Hypothyroidism. 9. Hyperlipidemia. PLAN: Continue current medication and treatment plan. Care was discussed with the patient. No family is present. The patient did undergo left hip hemiarthroplasty. MMODL / IJN: [id number] /
[2018-03-02] MEDS: LEVOTHYROXINE 50 MCG TAB PO SCH (05:59)
[2018-03-02 07:14] LABS: INR 1.1 (<1.2); Prothrombin Time 10.6 sec (9.0-12.0)
[2018-03-02 07:25] LABS: Calcium 9.5 mg/dL (8.4-10.2); Potassium 4.2 mmol/L (3.5-5.1)
[2018-03-02] MEDS: HYDROcodone/APAP 5-325MG 1 EACH TAB PO PRN ×2 (08:24→20:35)
[2018-03-02] MEDS: MULTIVITAMINS, THERA 1 EACH TAB PO SCH (08:24)
[2018-03-02] MEDS: LOSARTAN 50 MG TAB PO SCH (08:24)
[2018-03-02] MEDS: ALLOPURINOL 100 MG TAB PO SCH (08:24)
[2018-03-02] MEDS: amLODIPine 10 MG TAB PO SCH (08:24)
[2018-03-02] MEDS: ISOSORBIDE MONONITRATE ER 60 MG TAB.ER.24H PO SCH (08:24)
[2018-03-02] MEDS: FENOFIBRATE 160 MG TAB PO SCH (08:24)
[2018-03-02] MEDS: ENOXAPARIN 30 MG/0.3 ML SYRINGE SQ SCH (08:25)
[2018-03-02] MEDS: FLUTICASONE 50MCG/SPRAY NASAL 16GM EA NOSTRIL SCH (08:27)
--- NOTE | 2018-03-02 10:11 | P.PN ---
Subjective Progress Note Date: 03/02/18 Principal diagnosis: Left hip fracture. Status post hemiarthroplasty left hip. This is an 82-year-old female who is status post hemiarthroplasty of the left hip. She is postop day #2. Family is present at bedside. Her pain is improved today. Vital signs are stable. Objective - Vital Signs Vital signs: Vital Signs Temp 98.1 F 03/02/18 06:43 Pulse 68 03/02/18 06:43 Resp 14 03/02/18 06:43 BP 143/75 03/02/18 06:43 Pulse Ox 99 03/02/18 06:43 Intake & Output 03/01/18 03/02/18 03/02/18 18:59 06:59 18:59 Intake Total 200 1050 420 Output Total 600 750 Balance -400 300 420 Intake: Intake, IV Titration 200 Amount Lactated Ringers 1,000 ml 200 @ 100 mls/hr IV .Q10H ESTHELA Rx#:[id number] Oral 1050 420 Output: Urine 600 750 Other: Voiding Method Indwelling Catheter Indwelling Catheter Indwelling Catheter - Exam This is a pleasant 82-year-old female in no acute distress. She is alert and oriented 3. Exam of the lower extremities reveals that her dressing to her left hip is clean, dry and intact. She has full foot and ankle motion without difficulty or pain. Neurovascular status to the lower extremities intact. - Labs CBC & Chem 7: 03/01/18 06:21 03/02/18 06:19 Labs: Abnormal Lab Results - Last 24 Hours (Table) 03/02/18 Range/Units 06:19 BUN 29 H (7-17) mg/dL Creatinine 1.50 H (0.52-1.04) mg/dL Assessment and Plan (1) Closed left hip fracture Current Visit: Yes Status: Acute Code(s): S72.002A - FRACTURE OF UNSP PART OF NECK OF LEFT FEMUR, INIT SNOMED Code(s): 337864366 (2) Fall Current Visit: Yes Status: Acute Code(s): W19.XXXA - UNSPECIFIED FALL, INITIAL ENCOUNTER SNOMED Code(s): 3198804 Plan: The clinical findings are discussed with the nursing staff. We will continue to follow. She is to continue therapy today. We're planning discharge to inpatient rehab Saturday.
[2018-03-02] MEDS: PSYLLIUM HUSK 100% 6 GM PACKET PO SCH (15:01)
--- NOTE | 2018-03-02 20:17 | PN ---
PROGRESS NOTE DATE OF SERVICE: March 02, 2018. PRESENTING COMPLAINT: Fall. INTERVAL HISTORY: Patient admitted with left femoral neck fracture status post surgery. The patient's daughter is here from [place]. The patient tolerating a diet. The patient does get at home, requesting something. No abdominal pain. No nausea, vomiting. REVIEW OF SYSTEMS: Done for constitutional, cardiovascular, GI, pulmonary, musculoskeletal and relevant findings as above. CURRENT MEDICATIONS: Reviewed. EXAMINATION: VITAL SIGNS: Temperature 98.1, pulse 60, respiration 14, blood pressure 143/75, pulse ox 99% on 2 L. GENERAL APPEARANCE: Sitting up, comfortable. EYES: Pupils are equal. Conjunctivae normal. HEENT: External appearance of nose and ears normal. Oral cavity normal. NECK: JVD not raised. Mass not palpable. RESPIRATORY: Effort normal. LUNGS are clear. CARDIOVASCULAR: 1st and second sounds normal. No edema. ABDOMEN: Soft, nontender. Liver and spleen not palpable. PSYCHIATRY: Alert and oriented times three. Mood and affect normal. Additional note: The patient's daughter is acting as the correctional agency director. INVESTIGATIONS: BUN 29, creatinine 1.50. ASSESSMENT: 1. Acute femoral neck fracture secondary to fall by surgical intervention. 2. Multilevel degenerative joint disease. 3. Chronic L3 compression fracture. 4. Chronic gait dysfunction. Patient at baseline using a walker. 5. Coronary artery disease. 6. Essential hypertension. 7. Chronic kidney disease stage 3 from hypertensive nephrosclerosis. 8. Hypothyroidism. 9. Hyperlipidemia. 10.Acute renal failure component probably prerenal. Creatinine did come down from 1.92 down to 1.5. 11.Chronic functional diarrhea. PLAN: At this point, continue medication and treatment plan. We will add Metamucil. I will check patient's thyroid function in the morning to make sure she is not over replaced. MMODL / IJN: [id number] /
[2018-03-02] MEDS: SENNOSIDES-DOCUSATE SODIUM 1 EACH TAB PO SCH (20:35)
[2018-03-02] MEDS: ATORVASTATIN 10 MG TAB PO SCH (20:35)
[2018-03-03] MEDS: LEVOTHYROXINE 50 MCG TAB PO SCH (05:35)
[2018-03-03 07:30] LABS: Basophils % (A) 1 %; Eosinophils # (A) 0.2 k/uL (0-0.7); Eosinophils % (A) 3 %; HCT 31.7 % (34.0-46.0); Lymphocytes # (A) 0.8 k/uL (1.0-4.8); Lymphocytes % (A) 17 %; MCH 29.2 pg (25.0-35.0); MCHC 31.5 g/dL (31.0-37.0); MCV 92.7 fL (80.0-100.0); Mean Platelet Volume 7.5; Monocytes # (A) 0.3 k/uL (0-1.0); Monocytes % (A) 5 %; Neutrophils # (A) 3.6 k/uL (1.3-7.7); Neutrophils % (A) 74 %; Platelet Count 202 k/uL (150-450); RBC 3.42 m/uL (3.80-5.40); RDW 14.5 % (11.5-15.5)
[2018-03-03 07:45] LABS: Calcium 9.2 mg/dL (8.4-10.2); Potassium 4.4 mmol/L (3.5-5.1)
[2018-03-03] MEDS: ENOXAPARIN 30 MG/0.3 ML SYRINGE SQ SCH (08:41)
[2018-03-03] MEDS: amLODIPine 10 MG TAB PO SCH (08:41)
[2018-03-03] MEDS: FENOFIBRATE 160 MG TAB PO SCH (08:41)
[2018-03-03] MEDS: ALLOPURINOL 100 MG TAB PO SCH (08:41)
[2018-03-03] MEDS: FLUTICASONE 50MCG/SPRAY NASAL 16GM EA NOSTRIL SCH (08:42)
[2018-03-03] MEDS: ISOSORBIDE MONONITRATE ER 60 MG TAB.ER.24H PO SCH (08:42)
[2018-03-03] MEDS: LOSARTAN 50 MG TAB PO SCH (08:42)
[2018-03-03] MEDS: PSYLLIUM HUSK 100% 6 GM PACKET PO SCH (08:44)
[2018-03-03] MEDS ORDERED: ERGOCALCIFEROL 50,000 UNIT CAP PO SCH (09:00)
[2018-03-03] MEDS: HYDROcodone/APAP 5-325MG 1 EACH TAB PO PRN ×2 (09:12→21:17)
--- NOTE | 2018-03-03 10:21 | P.DS ---
Providers Date of admission: 02/27/18 11:48 Expected date of discharge: 03/03/18 Attending physician: Gilberto Richards Consults: 02/27/18 11:49 Consult Physician Routine Consulting Provider: Pablo Enamorado Consult Reason/Comments: Medical clearance for surgery Do you want consulting provider notified?: Yes Primary care physician: Maryam Marcus - Discharge Diagnosis(es) (1) Closed left hip fracture Patient was admitted to the OR on 02/28/2018 to undergo a left hip hemiarthroplasty after suffering a left hip fracture. She desired to proceed with elective surgery after given informed consent. She underwent the above procedure which he tolerated well without complication. Postoperative hospital course has remained without complication. On day of discharge he is afebrile, vital signs stable, labs within acceptable ranges, tolerating by mouth meds and diet, voiding without difficulty, positive flatus, denies abdominal pain or calf pain, pain is controlled on oral pain medication and has no new complaints. Wound is benign, neurovascular status is intact, calf is soft and nontender, abdomen soft and nontender. Review of systems is negative for numbness, tingling, fever, chills, chest pain, shortness breath, nausea, vomiting, dizziness, headaches, slurred speech or other. Current Visit: Yes Status: Acute Priority: Medium Procedures: Left hip hemiarthroplasty Patient Condition at Discharge: Fair Plan - Discharge Summary Discharge Rx Participant: No New Discharge Prescriptions: New Docusate [Colace] 100 mg PO BID #60 capsule Enoxaparin [Lovenox] 30 mg SQ DAILY #14 syringe HYDROcodone/APAP 5-325MG [[place] 5-325] 1 tab PO Q4HR PRN #60 tab PRN Reason: Pain No Action Simvastatin [Zocor] 20 mg PO HS Nitroglycerin Sl Tabs [Nitrostat] 0.4 mg SUBLINGUAL Q5M PRN PRN Reason: Angina Losartan [Cozaar] 50 mg PO DAILY Levothyroxine Sodium [Synthroid] 50 mcg PO DAILY amLODIPine [Norvasc] 10 mg PO DAILY Isosorbide Mononitrate ER [Imdur] 60 mg PO DAILY Fluticasone Nasal Trinity [Flonase Nasal Trinity] 2 spr EA NOSTRIL DAILY Fenofibrate [Lofibra] 160 mg PO DAILY Cyclobenzaprine [Flexeril] 5 mg PO TID PRN PRN Reason: Spasms Allopurinol [Zyloprim] 100 mg PO DAILY Ergocalciferol (Vitamin D2) [Vitamin D2] 50,000 unit PO Q7D Discharge Medication List Allopurinol [Zyloprim] 100 mg PO DAILY 02/27/18 [History] Cyclobenzaprine [Flexeril] 5 mg PO TID PRN 02/27/18 [History] Ergocalciferol (Vitamin D2) [Vitamin D2] 50,000 unit PO Q7D 02/27/18 [History] Fenofibrate [Lofibra] 160 mg PO DAILY 02/27/18 [History] Fluticasone Nasal Trinity [Flonase Nasal Trinity] 2 spr EA NOSTRIL DAILY 02/27/18 [ History] Isosorbide Mononitrate ER [Imdur] 60 mg PO DAILY 02/27/18 [History] Levothyroxine Sodium [Synthroid] 50 mcg PO DAILY 02/27/18 [History] Losartan [Cozaar] 50 mg PO DAILY 02/27/18 [History] Nitroglycerin Sl Tabs [Nitrostat] 0.4 mg SUBLINGUAL Q5M PRN 02/27/18 [History] Simvastatin [Zocor] 20 mg PO HS 02/27/18 [History] amLODIPine [Norvasc] 10 mg PO DAILY 02/27/18 [History] Docusate [Colace] 100 mg PO BID #60 capsule 03/03/18 [Rx] Enoxaparin [Lovenox] 30 mg SQ DAILY #14 syringe 03/03/18 [Rx] HYDROcodone/APAP 5-325MG [[place] 5-325] 1 tab PO Q4HR PRN #60 tab 03/03/18 [Rx] Follow up Appointment(s)/Referral(s): Maryam Marcus MD [Primary Care Provider] - 1-2 days Gilberto Richards MD [Medical Doctor] - 03/17/18 2:30 pm Activity/Diet/Wound Care/Special Instructions: Keep wound clean and dry Take meds as directed Follow-up with Dr. Richards in office Weight bear as tolerated May shower if no bleeding Discharge Disposition: TRANSFER TO SNF/ECF
[2018-03-03] MEDS: MULTIVITAMINS, THERA 1 EACH TAB PO SCH (19:34)
[2018-03-03] MEDS: SENNOSIDES-DOCUSATE SODIUM 1 EACH TAB PO SCH (21:17)
[2018-03-03] MEDS: ATORVASTATIN 10 MG TAB PO SCH (21:17)
--- NOTE | 2018-03-03 23:42 | PN ---
PROGRESS NOTE DATE OF SERVICE: March 03, 2018. PRESENTING COMPLAINT: Hip fracture. INTERVAL HISTORY: Patient is status post left hip surgery, doing well. Tolerating a diet. Pain is better controlled. Daughter at the bedside. Diarrhea is better with Metamucil. REVIEW OF SYSTEMS: Done for constitutional, cardiovascular, GI, pulmonary and relevant findings as above. CURRENT MEDICATIONS: Reviewed. EXAMINATION: VITAL SIGNS: Temperature 98, pulse 81, respirations 16, blood pressure 126/62. Pulse 95%. GENERAL APPEARANCE: Sitting up, comfortable. EYES: Pupils equal. Conjunctivae normal. NECK: JVD not raised. Mass not palpable. RESPIRATORY: Effort normal. LUNGS: Clear. CARDIOVASCULAR: 1st and 2nd sounds normal. No edema. ABDOMEN: Soft, nontender. Liver and spleen not palpable. PSYCHIATRY: Alert and oriented x3. Mood and affect normal. INVESTIGATIONS: Hemoglobin is 10, potassium 4.4, BUN 31, creatinine 1.50. ASSESSMENT: 1. Acute femoral neck fracture secondary to fall by surgical intervention. 2. Multi level degenerative joint disease. 3. Chronic L3 compression fracture. 4. Chronic gait dysfunction. Patient at baseline uses a walker. 5. Coronary artery disease. 6. Essential hypertension. 7. Chronic kidney disease stage 3 from hypertensive nephrosclerosis. 8. Hypothyroidism. 9. Hyperlipidemia. 10.Acute renal failure component likely prerenal. 11.Chronic functional diarrhea. Responded well to Metamucil. Care was discussed with the daughter at the bedside, who did convey everything to the patient in Mandarin yet again. MMODL / IJN: [id number] /
[2018-03-04] MEDS: LEVOTHYROXINE 50 MCG TAB PO SCH (05:34)
[2018-03-04] MEDS: FLUTICASONE 50MCG/SPRAY NASAL 16GM EA NOSTRIL SCH (08:50)
[2018-03-04] MEDS: FENOFIBRATE 160 MG TAB PO SCH (08:51)
[2018-03-04] MEDS: amLODIPine 10 MG TAB PO SCH (08:51)
[2018-03-04] MEDS: ISOSORBIDE MONONITRATE ER 60 MG TAB.ER.24H PO SCH (08:51)
[2018-03-04] MEDS: MULTIVITAMINS, THERA 1 EACH TAB PO SCH (08:51)
[2018-03-04] MEDS: ENOXAPARIN 30 MG/0.3 ML SYRINGE SQ SCH (08:51)
[2018-03-04] MEDS: LOSARTAN 50 MG TAB PO SCH (08:51)
[2018-03-04] MEDS: ALLOPURINOL 100 MG TAB PO SCH (08:51)
[2018-03-04] MEDS: PSYLLIUM HUSK 100% 6 GM PACKET PO SCH (08:52)
[2018-03-04 09:43] LABS: Prothrombin Time 9.7 sec (9.0-12.0)
[2018-03-04 10:12] LABS: Calcium 9.6 mg/dL (8.4-10.2); Potassium 4.4 mmol/L (3.5-5.1)
[2018-03-04] MEDS: HYDROcodone/APAP 5-325MG 1 EACH TAB PO PRN ×2 (11:59→17:41)
[2018-03-04 14:50] VITALS: BP 100/61; PULSE 80; RESP 16; TEMP 97.5
--- NOTE | 2018-03-05 11:07 | PN ---
PROGRESS NOTE DATE OF SERVICE: 03/04/2018 PRESENTING COMPLAINT: Hip fracture. INTERVAL HISTORY: This patient was seen by me yesterday. Doing much better. Pain is controlled. Some pain at the surgical site. Tolerating a diet. Had a bowel movement. Diarrhea is controlled. The patient's daughter from [place] is here. REVIEW OF SYSTEMS: Review of systems done for constitutional, cardiovascular GI, pulmonary, musculoskeletal; relevant findings as above. CURRENT MEDICATIONS: Current medications are reviewed. PHYSICAL EXAMINATION: On examination, temperature 97.9, pulse 69, respirations 14, blood pressure 121/74, pulse ox 97% on room air. GENERAL APPEARANCE: Sitting up in a chair, comfortable. EYES: Pupils equal. Conjunctivae normal. HENT: External appearance of nose and ears normal. Oral cavity normal. NECK: JVD not raised. Mass not palpable. RESPIRATORY: Effort normal. Lungs are clear. CARDIOVASCULAR: First and second sounds normal. No edema. ABDOMEN: Soft, nontender. Liver and spleen not palpable. PSYCHIATRY: Alert and oriented x3. Mood and affect normal. INVESTIGATIONS: Potassium 4, BUN 40, creatinine 1.52. ASSESSMENT: 1. Acute femoral neck fracture secondary to fall followed by surgical intervention. 2. Multiple level degenerative joint disease. 3. Chronic L3 compression fracture. 4. Chronic gait dysfunction. Patient at baseline uses a walker. 5. Coronary artery disease. 6. Essential hypertension. 7. Chronic kidney disease from hypertensive nephrosclerosis. 8. Hypothyroidism. 9. Hyperlipidemia. 10.Acutely renal failure component likely prerenal. 11.Chronic functional diarrhea, responded well to Metamucil. PLAN: Care was discussed with the patient's daughter at bedside. The patient is really happy with the care and is going to go to rehab today. MMODL / IJN: [id number] /
== END 2018-03-04 17:35 | DRG 470 ==
LOC: EC 09:14 → 3SUR 11:48
PROVIDERS: ADMIT Orthopaedic Surgery; ATTEND Orthopaedic Surgery
PROC: 0SRS0J9 Replacement of Left Hip Joint, Femoral Surface with Synthetic Substitute, Cemented, Open Approach (ICD-10-PCS; principal; 2018-02-28 13:30)
DX: S72.012A Unspecified intracapsular fracture of left femur, initial encounter for closed fracture (principal); M48.56XA Collapsed vertebra, not elsewhere classified, lumbar region, initial encounter for fracture; N17.9 Acute kidney failure, unspecified; N18.4 Chronic kidney disease, stage 4 (severe); E03.9 Hypothyroidism, unspecified; E78.5 Hyperlipidemia, unspecified; G89.29 Other chronic pain; I12.9 Hypertensive chronic kidney disease with stage 1 through stage 4 chronic kidney disease, or unspecified chronic kidney disease; I25.10 Atherosclerotic heart disease of native coronary artery without angina pectoris; K59.1 Functional diarrhea; M19.90 Unspecified osteoarthritis, unspecified site; M47.816 Spondylosis without myelopathy or radiculopathy, lumbar region; W19.XXXA Unspecified fall, initial encounter; Z79.899 Other long term (current) drug therapy; Z80.9 Family history of malignant neoplasm, unspecified; Z82.49 Family history of ischemic heart disease and other diseases of the circulatory system; Z90.710 Acquired absence of both cervix and uterus; Z79.890 Hormone replacement therapy; Z79.51 Long term (current) use of inhaled steroids; Z90.49 Acquired absence of other specified parts of digestive tract
CPT/HCPCS: 36415; 71045; 72100; 73501; 73502; 76770; 80048; 80053; 82306; 83735; 84443; 85025; 85610; 85730; 88305; 88311; 93005; 96374; 99284